=== PATIENT | female | born 1950 | race Caucasian/White ===

== ENCOUNTER 2019-08-28 18:31 | Emergency (ER) | payer BC, OTHER ==
[~2019-08-28] VITALS: Ht 167.6 cm; Wt 68.0 kg
--- NOTE | 2019-08-28 18:39 | NUR ---
BIB [facility] FROM [facility], WORSENING LOW BACK PAIN, H/O GLF 08/23/19,CT OF PELVIS DONE IN [facility] WAS NEGATIVE FOR F/X OR DISLOCATION. STATES PAIN 9/10. VISUALLY UPSET, SOMETIMES CRYING. AOX3, VSS, RR EVEN AND UNLABORED. DIFFICULTY AMBULATING. NO ACUTE DISTRESS NOTED. SKIN WARM, DRY, INTACT. MADE COMFORTABLE AND READY FOR EVAL.
[2019-08-28] MEDS ORDERED: oxyCODONE/APAP (5/325 MG) 1 UDTAB TABLET PO ONE (19:00)
[2019-08-28] MEDS ORDERED: oxyCODONE/APAP (5/325 MG) 1 UDTAB TABLET ONE (19:05)
--- NOTE | 2019-08-28 19:18 | NUR ---
PERFORMED STRAIGHT CATH PROCEDURE PER PROTOCOL. PT ANNABEL WELL.
--- NOTE | 2019-08-28 20:55 | NUR ---
PER CELL LEAD, PT WILL BE ADMITTED TO THE HOSPITAL
[2019-08-28] MEDS ORDERED: MORPHINE SULFATE INJ 2 MG/ML DISP.SYRIN IV ONE (21:00)
[2019-08-28] MEDS ORDERED: ONDANSETRON HCL/PF 4 MG/2 ML VIAL IV ONE (21:00)
[2019-08-28] MEDS ORDERED: ONDANSETRON HCL/PF 4 MG/2 ML VIAL ONE (21:06)
[2019-08-28] MEDS ORDERED: MORPHINE SULFATE INJ 4 MG/ML DISP.SYRIN ONE (21:07)
--- NOTE | 2019-08-28 21:10 | NUR ---
FAXED REQUEST FOR HEALTH INFO TO [facility]
[2019-08-28 21:18] LABS: BASOPHILS # (AUTO) 0.1 /CMM (0.0-0.2); BASOPHILS % (AUTO) 1.1 % (0.0-2.0); EOSINOPHILS % (AUTO) 6.1 % (0.0-6.0); HEMATOCRIT 38 % (33-45); HEMOGLOBIN 12.5 g/dL (11.5-14.8); LYMPHOCYTES # (AUTO) 1.1 /CMM (0.8-4.8); LYMPHOCYTES % (AUTO) 18.1 % (20.0-44.0); MEAN CORPUSCULAR HGB CONC 33 g/dl (31.0-36.0); MEAN CORPUSCULAR VOLUME 95 fL (82-100); MONOCYTES # (AUTO) 0.5 /CMM (0.1-1.30); MONOCYTES % (AUTO) 7.9 % (2.0-12.0); NEUTROPHILS # (AUTO) 4.1 /CMM (1.8-8.9); NEUTROPHILS % (AUTO) 66.8 % (43.0-81.0); PLATELET COUNT (AUTO) 219 /CMM (150-450); WHITE BLOOD COUNT (AUTO) 6.2 K/uL (4.3-11.0)
[2019-08-28 21:29] LABS: CALCIUM, SERUM 8.9 mg/dL (8.5-10.1)
[2019-08-28 21:34] LABS: ALBUMIN 3.7 g/dL (3.4-5.0); BILIRUBIN,TOTAL 0.4 mg/dL (0.2-1.0); TOTAL PROTEIN, SERUM 7.5 g/dL (6.4-8.2)
--- NOTE | 2019-08-28 22:11 | NUR ---
LOPEZ CATHETER INSERTED PER PROTOCOL. PT ANNABEL WELL
[2019-08-28] MEDS ORDERED: IV NS 0.9% 500 ML BAG IV ONE (22:30)
--- NOTE | 2019-08-28 22:47 | NUR ---
PT STATES PAIN IS INCREASING. AWARE
[2019-08-28] MEDS ORDERED: HYDROMORPHONE 1 MG/1 ML DISP.SYRIN ONE (23:10)
[2019-08-28] MEDS ORDERED: HYDROMORPHONE INJ 0.5 MG/0.5 ML SYRINGE IV ONE (23:30)
--- NOTE | 2019-08-28 23:39 | NUR ---
DR ARELLANO SPEAKING WITH HCP MD
--- NOTE | 2019-08-29 00:14 | NUR ---
pt resting comfrotably in bed. no signs of distress noted. will cont to monitor pt.
[2019-08-29 00:31] LABS: APPEARANCE,URINE Clear (CLEAR); BILIRUBIN,URINE Negative (NEGATIVE); BLOOD, URINE Negative Ery/uL (NEGATIVE); COLOR,URINE Yellow (YELLOW); KETONES,URINE 15 (NEGATIVE); LEUKOCYTE ESTERASE ,URINE Negative (NEGATIVE); NITRITE, URINE Negative (NEGATIVE); PH,URINE 5.5 (5.0-8.0); PROTEIN,URINE Negative (NEGATIVE); UGLUCOSE Negative (NEGATIVE); UROBILINOGEN,URINE 0.2 EU/dL (0.2)
[2019-08-29] MEDS ORDERED: HYDROMORPHONE INJ 0.5 MG/0.5 ML SYRINGE IV ONE ×2 (02:00→10:00)
[2019-08-29] MEDS ORDERED: HYDROMORPHONE 1 MG/1 ML DISP.SYRIN ONE ×2 (02:03→09:46)
[2019-08-29] MEDS ORDERED: MORPHINE SULFATE INJ 4 MG/ML DISP.SYRIN ONE (07:15)
--- NOTE | 2019-08-29 07:20 | NUR ---
ASSESSED PT AWAKE ON BED, AAOX4, NOT IN RESPIRATORY DISTRESS, V/S STABLE, KEPT RESTED AND COMFORTABLE, AWAITING INFO FOR PT TRANSFER TO OTHER HOSPITAL, WILL CONTINUE TO MONITOR.
[2019-08-29] MEDS ORDERED: GABAPENTIN 100 MG CAPSULE PO ONE (07:30)
[2019-08-29] MEDS ORDERED: LEVOTHYROXINE SODIUM 75 MCG TABLET PO SCH (07:30)
[2019-08-29] MEDS ORDERED: MORPHINE SULFATE INJ 2 MG/ML DISP.SYRIN IV ONE (07:30)
[2019-08-29] MEDS ORDERED: LEVOTHYROXINE SODIUM 100 MCG TABLET PO ONE (07:30)
[2019-08-29] MEDS ORDERED: GABAPENTIN 300 MG CAPSULE ONE (07:35)
--- NOTE | 2019-08-29 08:17 | NUR ---
SPOKED TO PETTY AT PT'S PMD CLINIC, PMD NOT AVAILABLE.
--- NOTE | 2019-08-29 08:27 | NUR ---
CALLED PT ORTHO SURGEON DR. MOODY, LEFT A MESSAGE FOR A CALLBACK.
--- NOTE | 2019-08-29 08:36 | NUR ---
CALLED [facility] PHONE NUMBER AND SPOKE WITH SOMEONE REGARDING TRANSFER OF PT. [facility] PHONE NUMBER [phone]. NOTIFIED ME THAT SONU PELLETI[facility] IS CURRENTLY LOOKING FOR BED AVAILABILITY AT EITHER OF CONTRACTED HOSPITALS AND WILL CALL BACK WHEN ONE IS AVAILABLE. [facility]'S CONTACT INFO [phone].
[2019-08-29 08:50] VITALS: BP 119/68
[2019-08-29] MEDS ORDERED: LISINOPRIL (10MG) 10 MG TABLET PO SCH (09:00)
--- NOTE | 2019-08-29 10:00 | NUR ---
CALLED HCP CM LIY[facility] AND STILL NO BED ASSINGMENT. WILL CALL BACK ONCE BED ASSINGMENT IS AVAILABLE. ACCEPTING HOSPITALIST IS DR KINGSLEY AND ORTHOPEDIST IS DR. GUNN.
--- NOTE | 2019-08-29 10:02 | NUR ---
Nila memory care director at [id number] [address]
--- NOTE | 2019-08-29 10:09 | NUR ---
REPORT GIVEN TO ASHLEY FULTON FOR KATIA.
--- NOTE | 2019-08-29 11:11 | NUR ---
[facility]
== END 2019-08-29 11:13 | disposition short-term general hospital (02) ==
LOC: ER 18:37
DX: S72.012A Unspecified intracapsular fracture of left femur, initial encounter for closed fracture (principal); M54.16 Radiculopathy, lumbar region; R79.89 Other specified abnormal findings of blood chemistry; I10 Essential (primary) hypertension; G89.29 Other chronic pain; E03.9 Hypothyroidism, unspecified; Z96.641 Presence of right artificial hip joint; W18.39XA Other fall on same level, initial encounter; Y93.89 Activity, other specified; Y92.89 Other specified places as the place of occurrence of the external cause; Y99.8 Other external cause status
CPT/HCPCS: 36415; 51702; 71045; 73503; 80053; 81001; 85025; 93005; 96374; 96375; 96376; 99285; J1170 ×3; J2270 ×2; J2405; J7030; 73502; 81000-TC